=== PATIENT | female | born 1985 | race Two or more races ===

== ENCOUNTER 2022-12-24 12:43 | Emergency (ER) | payer OTHER ==
[~2022-12-24] VITALS: Ht 153.7 cm; Wt 76.0 kg
[2022-12-24 13:00] VITALS: TEMP 97.4
[2022-12-24] MEDS ORDERED: ONDANSETRON HCL 4 MG TABLET PO ONE (13:45)
[2022-12-24] MEDS ORDERED: ACETAMINOPHEN 500 MG TABLET PO ONE (13:45)
[2022-12-24 13:47] LABS: BASOPHILS % (AUTO) 0.8 % (0.0-2.0); EOSINOPHILS % (AUTO) 2.1 % (1.0-6.0); HEMATOCRIT 40.7 % (36-46); LYMPHOCYTES # (AUTO) 2.5 K/uL (1.0-4.8); MEAN CORPUSCULAR HEMOGLOBIN 30.3 pg (26.0-34.0); MEAN CORPUSCULAR HGB CONC 34.3 G/dL (31.0-37.0); MEAN CORPUSCULAR VOLUME 88 fL (80-100); MONOCYTES # (AUTO) 0.5 K/uL (0.1-1.0); MONOCYTES % (AUTO) 5.7 % (2.0-9.0); NEUTROPHILS % (AUTO) 60.4 % (40.0-70.0); PLATELET COUNT (AUTO) 260 K/uL (150-450); RED CELL DISTRIBUTION WIDTH 13.1 % (11.5-14.5); WHITE BLOOD COUNT (AUTO) 8.2 K/uL (4.5-11.0)
[2022-12-24 13:52] LABS: ANION GAP 8 mmol/L (8-16); CALCIUM, TOTAL 8.4 mg/dL (8.8-10.5); CARBON DIOXIDE 25 mmol/L (22-29); CHLORIDE 105 mmol/L (98-107); CREATININE 0.69 mg/dL (0.60-1.30); GLOMERULAR FILTR. RATE CALC > 60 mL/min (>60); GLUCOSE,RANDOM 134 mg/dL (70-110); SODIUM SERUM 138 mmol/L (136-145); UREA NITROGEN, BLOOD 12 mg/dL (7-18)
[2022-12-24 13:58] LABS: ALANINE AMINOTRANSFERASE 18 U/L (12-78); ALBUMIN 2.8 g/dL (3.4-5.0); ALKALINE PHOSPHATASE 72 U/L (46-116); ASPARTATE AMINOTRANSFERASE 14 U/L (15-37); BILIRUBIN,TOTAL 0.2 mg/dL (0.1-1.0); LIPASE 50 U/L (16-77); TOTAL PROTEIN, SERUM 6.7 g/dL (6.4-8.2)
[2022-12-24] MEDS ORDERED: ACET-66 PO (15:58)
[2022-12-24] MEDS ORDERED: ONDA-104 PO (15:58)
[2022-12-24] MEDS ORDERED: MAG30ORA11 PO (15:58)
[2022-12-24 17:30] VITALS: BP 120/65; PULSE 83; RESP 16
== END 2022-12-24 17:44 | disposition home or self-care (01) ==
LOC: EMS 12:50
DX: K80.70 Calculus of gallbladder and bile duct without cholecystitis without obstruction (principal); R10.13 Epigastric pain; Z98.890 Other specified postprocedural states
CPT/HCPCS: 99284; 76700; 80053; 83690; 84703; 85025; 36415; Q0162